=== PATIENT | female | born 1990 | race Caucasian/White ===

== ENCOUNTER 2021-09-06 15:13 | Emergency (ER) | payer SELFPAY | END 2021-09-06 16:15 | disposition home or self-care (01) | LOC: KA.ED 15:13 | DX: S80.862A Insect bite (nonvenomous), left lower leg, initial encounter (principal); L08.9 Local infection of the skin and subcutaneous tissue, unspecified; Z88.0 Allergy status to penicillin; Z88.1 Allergy status to other antibiotic agents; Z88.2 Allergy status to sulfonamides; Z79.899 Other long term (current) drug therapy; W57.XXXA Bitten or stung by nonvenomous insect and other nonvenomous arthropods, initial encounter | CPT/HCPCS: 87070; 87075; 87186; 87205; 99283 ==

== ENCOUNTER 2023-08-20 19:55 | Emergency (ER) | payer MEDICARE ==
[2023-08-20] MEDS: Sodium Chloride 0.9% 10 ML Syringe FLUSH PRN (20:28)
[2023-08-20] MEDS: Metoprolol Tartrate 5 MG/5 ML SDV IVPUSH ONE ×2 (20:53→22:37)
[2023-08-20] MEDS: Furosemide 40 MG/4 ML VIAL IVPUSH ONE (20:56)
[2023-08-20 20:58] LABS: BASOPHILS ABSOLUTE AUTO 0.02 10^3/uL (0.00-0.10); BASOPHILS PERCENT AUTO 0.2 % (0.0-1.0); EOSINOPHILS ABSOLUTE AUTO 0.02 10^3/uL (0.10-0.30); EOSINOPHILS PERCENT AUTO 0.2 % (1.0-3.0); HEMATOCRIT 44.3 % (37.0-47.0); HEMOGLOBIN 15.2 g/dL (12.0-16.0); IMMATURE GRAN ABSOLUTE AUTO 0.01 10^3/uL (0.00-0.50); IMMATURE GRAN PERCENT AUTO 0.1 % (0.0-5.0); LYMPHOCYTES ABSOLUTE AUTO 3.13 10^3/uL (1.00-4.00); LYMPHOCYTES PERCENT AUTO 30.1 % (20.0-40.0); MEAN CORPUSCULAR HEMOGLOBIN 33.9 pg (27.0-31.0); MEAN CORPUSCULAR HGB CONC 34.3 g/dL (32.0-36.0); MEAN CORPUSCULAR VOLUME 98.9 fL (82.0-92.0); MEAN PLATELET VOLUME 10.7 fL (7.4-10.4); MONOCYTES ABSOLUTE AUTO 0.58 10^3/uL (0.10-0.80); MONOCYTES PERCENT AUTO 5.6 % (2.0-8.0); NEUTROPHILS ABSOLUTE AUTO 6.64 10^3/uL (2.50-7.00); NEUTROPHILS PERCENT AUTO 63.8 % (50.0-70.0); PLATELET COUNT,PLT 257 10^3/uL (150-400); RED BLOOD CELL COUNT 4.48 10^6/uL (3.80-5.50)
[2023-08-20 21:13] LABS: ALBUMIN 3.33 g/dL (3.40-5.00); ANION GAP 15.9 mmol/L (5-15); BILIRUBIN TOTAL 0.8 mg/dL (0.2-1.0); CALCIUM 9.2 mg/dL (8.7-10.3); CARBON DIOXIDE,CO2 22.2 mmol/L (21.0-32.0); CREATININE 1.22 mg/dL (0.51-1.17); EST CRCL DRUG DOSING (CG) 55.58 mL/min; POTASSIUM,K 4.1 mmol/L (3.5-5.1); PROTEIN TOTAL,TP 6.5 g/dL (6.4-8.2)
[2023-08-20] MEDS: Aspirin 81 MG Tab.Chew PO ONE (21:46)
[2023-08-20] MEDS: Heparin Sodium 5,000 Units/ML Vial IVPUSH ONE (21:48)
[2023-08-20] MEDS: Heparin Sodium/D5W 250 ML IV SCH (21:52)
[2023-08-20] MEDS: Ondansetron 4 MG/2 ML SDV IVPUSH ONE (22:50)
== END 2023-08-20 22:52 ==
LOC: SUPCPDRO 19:55 → KA.ED 19:55
DX: I11.0 Hypertensive heart disease with heart failure (principal); I50.42 Chronic combined systolic (congestive) and diastolic (congestive) heart failure; R79.89 Other specified abnormal findings of blood chemistry; R00.0 Tachycardia, unspecified; F17.200 Nicotine dependence, unspecified, uncomplicated; Z86.16 Personal history of COVID-19; Z79.899 Other long term (current) drug therapy; Z88.0 Allergy status to penicillin; Z88.2 Allergy status to sulfonamides; Z88.1 Allergy status to other antibiotic agents
CPT/HCPCS: 36415; 71045; 80053; 83880; 84484; 85025; 85379; 96365; 96375; 96376; 99285-25; A9270-GY; J1644; J1940; J3490